=== PATIENT | female | born 1975 | race Caucasian/White ===

== ENCOUNTER 2017-09-07 10:10 | Inpatient (IN) | payer OTHER ==
[~2017-09-07] VITALS: Ht 167.6 cm; Wt 71.0 kg
[2017-09-07] MEDS ORDERED: RINGERS SOLUTION,LACTATED 1,000 ML IV ONE (10:59)
[2017-09-07] MEDS ORDERED: CITRIC ACID/SODIUM CITRATE 30 ML SOLUTION UDCUP PO ONE (11:00)
[2017-09-07] MEDS ORDERED: METOCLOPRAMIDE HCL 5 MG/ML 2 ML VIAL IVP ONE (11:00)
[2017-09-07 11:28] LABS: BASOPHILS % (AUTO) 0.2 % (0.0-2.0); EOSINOPHILS % (AUTO) 0.6 % (1.0-6.0); HEMOGLOBIN 12.9 g/dL (12.0-16.0); LYMPHOCYTES # (AUTO) 1.4 K/uL (1.0-4.8); LYMPHOCYTES % (AUTO) 10.5 % (22.0-44.0); MEAN CORPUSCULAR HEMOGLOBIN 30.9 pg (26.0-34.0); MEAN CORPUSCULAR HGB CONC 33.9 G/dL (31.0-37.0); MEAN CORPUSCULAR VOLUME 91 fL (80-100); MONOCYTES # (AUTO) 1.1 K/uL (0.1-1.0); MONOCYTES % (AUTO) 8.2 % (2.0-9.0); NEUTROPHILS # (AUTO) 10.7 K/uL (1.8-7.7); NEUTROPHILS % (AUTO) 80.5 % (40.0-70.0); PLATELET COUNT (AUTO)-OB 222 K/uL (150-450); RED BLOOD CELL COUNT(AUTO) 4.17 MIL/uL (4.00-5.20); RED CELL DISTRIBUTION WIDTH 13.2 % (11.5-14.5)
[2017-09-07 11:40] VITALS: BP 118/73
[2017-09-07] MEDS ORDERED: OXYTOCIN 10 UNITS/ML VIAL IM ONE (12:00)
[2017-09-07] MEDS ORDERED: 0.9% SODIUM CHLORIDE 10 ML VIAL IVP ONE (12:00)
[2017-09-07] MEDS ORDERED: EPHEDrine SULFATE 50 MG/ML VIAL IM ONE (12:00)
[2017-09-07] MEDS ORDERED: PNV1TABL54 PO (12:11)
[2017-09-07] MEDS ORDERED: NALOXONE HCL 0.4 MG/ML VIAL IVP PRN (13:15)
[2017-09-07] MEDS ORDERED: ONDANSETRON HCL 4 MG/2 ML VIAL IVP PRN ×2 (13:15)
[2017-09-07] MEDS ORDERED: DEXAMETHASONE SOD PHOS 4 MG/ML VIAL IVP PRN (13:15)
[2017-09-07] MEDS ORDERED: MORPHINE SULFATE 10 MG/ML SYRINGE IVP PRN (13:15)
[2017-09-07] MEDS ORDERED: DiphenhydrAMINE HCL 50 MG/ML VIAL IM PRN (13:15)
[2017-09-07] MEDS ORDERED: DiphenhydrAMINE HCL 50 MG/ML VIAL IVP PRN ×2 (13:15)
[2017-09-07] MEDS ORDERED: FentaNYL CITRATE-PF 100 MCG/2 ML VIAL IVP PRN (13:15)
[2017-09-07] MEDS ORDERED: NALBUPHINE HCL 10 MG/ML VIAL IVP PRN ×3 (13:15)
[2017-09-07] MEDS ORDERED: LANOLIN 7 GM OINTMENT TP PRN (14:00)
[2017-09-07] MEDS: DEXTROSE 5%-0.45% SODIUM CHL 1,000 ML IV SCH ×2 (17:47→21:56)
[2017-09-07] MEDS ORDERED: OXYGEN THERAPY IH SCH ×3 (20:00)
[2017-09-07] MEDS: ACETAMINOPHEN 1000 MG/ISO-OSM 100 ML IV SCH (21:56)
[2017-09-08] MEDS ORDERED: DEXTROSE 5%-0.45% SODIUM CHL 1,000 ML IV ONE (03:08)
[2017-09-08] MEDS: DEXTROSE 5%-0.45% SODIUM CHL 1,000 ML IV SCH ×2 (03:11→06:58)
[2017-09-08] MEDS: IBUPROFEN 800 MG TABLET PO SCH ×3 (06:58→18:54)
[2017-09-08] MEDS: ACETAMINOPHEN 1000 MG/ISO-OSM 100 ML IV SCH (06:58)
[2017-09-08] MEDS: MAGNESIUM HYDROXIDE SUSPENSION 30 ML UDCUP PO SCH ×2 (09:24→20:16)
[2017-09-08] MEDS: ACETAMINOPHEN/CODEINE 300-30 MG TABLET PO PRN (20:16)
[2017-09-09] MEDS: IBUPROFEN 800 MG TABLET PO SCH ×4 (00:52→18:31)
[2017-09-09] MEDS: ACETAMINOPHEN/CODEINE 300-30 MG TABLET PO PRN ×3 (05:39→21:49)
[2017-09-09] MEDS: MAGNESIUM HYDROXIDE SUSPENSION 30 ML UDCUP PO SCH ×2 (09:04→21:49)
[2017-09-09] MEDS ORDERED: SENNA/DOCUSATE SODIUM 187-50 MG TABLET PO ONE (10:30)
[2017-09-10] MEDS: IBUPROFEN 800 MG TABLET PO SCH ×3 (00:58→12:30)
[2017-09-10] MEDS: ACETAMINOPHEN/CODEINE 300-30 MG TABLET PO PRN ×2 (06:37→09:27)
[2017-09-10] MEDS: MAGNESIUM HYDROXIDE SUSPENSION 30 ML UDCUP PO SCH (09:25)
[2017-09-10] MEDS ORDERED: IBUP-2071 PO (12:02)
== END 2017-09-10 13:10 | disposition home or self-care (01) | DRG 766 ==
LOC: 4S 10:10 → OBSVTOIN 10:10 → 4S 10:44 → UNDOADMOB 10:44 → INTOOBSV 10:44 → 4S 13:56
PROVIDERS: ADMIT Obstetrics & Gynecology; ATTEND Obstetrics & Gynecology
PROC: 10D00Z1 Extraction of Products of Conception, Low, Open Approach (ICD-10-PCS; principal; 2017-09-07)
DX: O66.5 Attempted application of vacuum extractor and forceps (principal); Z3A.39 39 weeks gestation of pregnancy; Z37.0 Single live birth; O09.513 Supervision of elderly primigravida, third trimester
CPT/HCPCS: 86850; 86900; 86901; 87081; J0131; J0690; J2590; J2765; J3490; J7120